=== PATIENT | female | born 1935 | race Two or more races ===

== ENCOUNTER 2016-06-22 08:28 | Outpatient (CLI) | payer MEDICARE | END 2016-06-22 23:59 | disposition home or self-care (01) | LOC: WOU 08:28 | PROVIDERS: ATTEND Podiatrist Foot & Ankle Surgery | DX: S91.312A Laceration without foreign body, left foot, initial encounter (principal); W45.8XXA Other foreign body or object entering through skin, initial encounter; Y93.89 Activity, other specified; Z87.891 Personal history of nicotine dependence; I25.10 Atherosclerotic heart disease of native coronary artery without angina pectoris; Z85.6 Personal history of leukemia; E78.5 Hyperlipidemia, unspecified; B35.3 Tinea pedis; L85.3 Xerosis cutis; R60.0 Localized edema | CPT/HCPCS: A6209; A6402 ==

== ENCOUNTER 2016-08-14 10:30 | Outpatient (CLI) | payer MEDICARE | END 2016-08-14 23:59 | disposition home health service (06) | LOC: WOU 10:30 | PROVIDERS: ATTEND Podiatrist Foot & Ankle Surgery | DX: S91.312D Laceration without foreign body, left foot, subsequent encounter (principal); X58.XXXD Exposure to other specified factors, subsequent encounter; B35.3 Tinea pedis; L85.3 Xerosis cutis; Z87.891 Personal history of nicotine dependence; Z85.6 Personal history of leukemia; E78.5 Hyperlipidemia, unspecified; G40.909 Epilepsy, unspecified, not intractable, without status epilepticus; Z79.899 Other long term (current) drug therapy | CPT/HCPCS: A6402; G0463 ==

== ENCOUNTER 2016-09-18 10:15 | Outpatient (CLI) | payer MEDICARE | END 2016-09-18 23:59 | disposition home or self-care (01) | LOC: WOU 10:15 | PROVIDERS: ATTEND Podiatrist Foot & Ankle Surgery | DX: S91.312D Laceration without foreign body, left foot, subsequent encounter (principal); X58.XXXD Exposure to other specified factors, subsequent encounter; Z87.891 Personal history of nicotine dependence; Z85.6 Personal history of leukemia; E78.5 Hyperlipidemia, unspecified; I25.10 Atherosclerotic heart disease of native coronary artery without angina pectoris; G40.909 Epilepsy, unspecified, not intractable, without status epilepticus; Z79.899 Other long term (current) drug therapy; K21.9 Gastro-esophageal reflux disease without esophagitis; I87.2 Venous insufficiency (chronic) (peripheral) | CPT/HCPCS: G0463 ==